=== PATIENT | male | born 1930 | race Caucasian/White ===

== ENCOUNTER 2017-07-13 08:16 | Outpatient (CLI) | payer MEDICARE, OTHER ==
--- NOTE | 2017-07-13 09:56 | CT ---
CT OF THE CERVICAL SPINE WITHOUT CONTRAST COMPARISON: None. HISTORY: Cervical surgery last year. Lack of coordination with walking. Cervical myelopathy. TECHNIQUE: Multiple contiguous axial images are obtained in a CT of the cervical spine without contrast. Sagit alyssia and coronal reformats were performed. FINDINGS: The patient is status post anterior fusion of C3 and C4 with a plate and screws. Disk spacer is see n within this disk space. The patient is status post posterior fusion of C2 through C5 with bilater al pedicle screws. Laminectomies have also been performed at these levels. The vertebral bodies de monstrate normal height and alignment without fracture or subluxation. Moderate anterior osteophyte s are seen in the lower cervical spine. Small posterior osteophytes are seen at C4-5, C5-6, and C6- 7. These osteophytes do not cause significant central canal stenosis but cause moderate bilateral n eural foraminal stenosis. No perihardware lucency is identified. No prevertebral soft tissue swell ing is seen. Calcifications are seen in the carotid arteries. IMPRESSION: Post-surgical changes of the cervical spine as above. The residual disk osteophyte complexes in the lower cervical spine cause a neural foraminal stenosis. POS: TAMARA
== END 2017-07-13 08:17 | disposition home or self-care (01) ==
LOC: SCSCT 08:16
PROVIDERS: ATTEND Psychiatry & Neurology Neurology
DX: G95.9 Disease of spinal cord, unspecified (principal); Z98.890 Other specified postprocedural states
CPT/HCPCS: 72125